=== PATIENT | male | born 2000 | race Caucasian/White ===

== ENCOUNTER 2025-07-13 12:01 | Emergency (ER) | payer BC ==
[~2025-07-13] VITALS: Ht 177.8 cm; Wt 89.3 kg
[2025-07-13 12:02] VITALS: PULSE 77; TEMP 97.8
--- NOTE | 2025-07-13 13:30 | Physician Documentation ---
History of Present Illness ~ Chief Complaint: Groin Pain Stated Complaint: GROIN PAIN Time Seen by MD: 15:17 [facility] 24-year-old male presents to the ED with a complaint of pain and swelling on his penile foreskin, states it has gotten worse over the last 2-3 days. Day of Onset: Jul 13, 2025 Medication Reconciliation Allergies: Coded Allergies: No Known Allergies (Unverified , 07/13/25) Scheduled Cephalexin*Monohydrate* (Keflex*), 1 CAP PO QID Miconazole Nitrate (Antifungal Cream), 1 APPLIC TOP Q12H Review of Systems All Other Systems at this time: Reviewed and Negative ROS As stated above in the HPI, otherwise all systems are reviewed and negative. Physical Exam Vital Signs: Temperature: 97.8, Source: Temporal, Heart Rate: 77, Respiratory Rate: 18, BP: 157/79, Pulse Oximetry: 100, Weight: 89.300 Physical Exam General: Alert, no apparent distress. Genitourinary: Inflamed foreskin and meatus no drainage. Psychiatric: Normal mood and affect. Skin: Normal color, warm and dry. No edema, no ecchymosis. Progress Results/Orders Results/Orders Vital Signs 07/13/25 07/13/25 12:02 15:28 Temp 97.8 Pulse 77 Resp 18 16 B/P (MAP) 157/79 136/80 Pulse Ox 100 98 Medical Decision Making Additional info obtained from: other Findings This patient presents with suspected balanitis. I suspect in his bacterial in nature however I am also going to prescribe an antifungal cream in case there is a fungal element. In the inflammation meets criteria for oral antibiotics Urinary Diff Dx:Considerations: Include: AAA, Aortic dissection, Appendicitis, Appendicitis train, Bowel obstruction, Bladder outlet obstruc., Cholelithiasis, Choleangitis, Cholecystitis, DJD, Epididymitis, Hepatitis, HNP, Impaction, Musculoskeletal pain, Pancreatitis, Postoperative Comp., Prostatitis, Pyelonephritis, Renal failure, Renal infarction, Strain, Urolithiasis, Urinary Obstruction, Urethritis, Urinary retention, UTI, Other Genital Diff Dx:Considerations: Include: Abscess, Balanitis, Balanoposthitis, Cellulitis, Epididymitis, Entrapment injury, Mel's gangrene, Foreign body, Facture penis, Hydrocele, Inguinal hernia, Post-op Complication, Paraphimosis, Prostatitis, Priapism, Syphilis, Testicular torsion, Torsion-epididymis, Torsion-appendiceal, Urinary retention, Urethritis, Urethritis-chlamydial, Urethritis-gonococcal, UTI, Other Departure Disposition: 01 HOME / SELF CARE / HOMELESS Impression: Primary Impression: Balanitis Discharge Instructions: Balanitis Referrals: NO PRIMARY CARE PROVIDER (PCP) Prescriptions Miconazole Nitrate (Antifungal Cream) 2 % Cream..g. 1 APPLIC TOP Q12H for 14 Days, GM 0 Refills Prov: SCOTT DORAN NP 07/13/25 Cephalexin*Monohydrate* (Keflex*) 500 Mg Capsule 1 CAP PO QID, #40 CAP Prov: SCOTT DORAN NP 07/13/25 Education Educated: Patient Educated regarding: diagnosis Signature Scribe Signature: t Attestation: Scribed for Scott Doran Experimental Assembler by Scott Braxton NP . 07/13/25 17:58 SCOTT DORAN NP Jul 13, 2025 13:30
[2025-07-13] MEDS ORDERED: CEPH-585 PO (15:23)
[2025-07-13] MEDS ORDERED: MICO14CR6 TOP (15:23)
[2025-07-13 15:28] VITALS: BP 136/80; RESP 16; O2SAT 98
== END 2025-07-13 15:36 | disposition home or self-care (01) ==
LOC: ER 12:02
DX: N48.1 Balanitis (principal)
CPT/HCPCS: 99283